=== PATIENT | male | born 1970 | race Caucasian/White ===

== ENCOUNTER → 2018-01-13 | Outpatient (CLI) | payer OTHER ==
--- NOTE | 2018-01-26 23:29 | ONC ---
[place] [address] RADIATION ONCOLOGY NOTE Name: DESI SMITHMAKENZIE SLADENETH Room: [facility]#: [id number] Admission: 01/13/18 Attend Phys: Scooby Sevilla MD Discharge: Date of : 74 Report #: [id number] THIS REPORT FOR: //name// CC: Dr. ISRAEL Webb DATE OF SERVICE: 01/13/2018 [facility] REFERRING PHYSICIANS: Dr. Pily Webb, Dr. Sarmiento, and Dr. Gerhard Liao. PRIMARY SITE AND HISTOPATHOLOGY: The patient has a T1b true vocal cord cancer. PROCEDURE: nasopharyngolaryngoscopy. FINDINGS: On nasopharyngolaryngoscopy, after application of 2% viscous lidocaine orally and then 2% viscous lidocaine to the right nostril with a cotton swab: there were no visible lesions in the nasopharynx and there were no visible lesions in the posterior oropharynx. The base of tongue had no visible lesions. The pharyngeal alvarado did not have any visible lesions. The patient does have a small ulceration from the mid aspect to the anterior aspect of the right true vocal cord consistent with his known right true vocal cord cancer. 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 The mobility was normal. The patient is being set up for radiation treatments for his true vocal cord cancer. Thank you for allowing me to participate in the care of this patient. <ELECTRONICALLY SIGNED> By: Scooby Sevilla MD 01/26/18 2329 1111 [id number] Sevilla MD /nt
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
== END | disposition home or self-care (01) ==
LOC: M.RTH 01:57
DX: C32.0 Malignant neoplasm of glottis (principal); K21.9 Gastro-esophageal reflux disease without esophagitis; Z98.890 Other specified postprocedural states; Z79.899 Other long term (current) drug therapy; Z87.891 Personal history of nicotine dependence

== ENCOUNTER → 2018-04-14 | Outpatient (CLI) | payer OTHER ==
--- NOTE | 2018-04-25 00:47 | ONC ---
[place] [address] RADIATION ONCOLOGY NOTE Name: LIAN PITTS Room: [facility].#: [id number] Admission: 04/14/18 Attend Phys: Scooby Sevilla MD Discharge: Date of : 74 Report #: [id number] THIS REPORT FOR: //name// CC: Dr. ISRAEL Junior MD DATE OF SERVICE: 04/14/2018 REFERRING PHYSICIANS: Include Dr. Pily Junior, Dr. Herrera Liao and Dr. Israel Sarmiento. [facility] phone is [phone]. PRIMARY SITE AND HISTOPATHOLOGY: The patient received definitive radiation therapy for a [id number] true vocal cord cancer. PROCEDURE: Nasopharyngolaryngoscopy. FINDINGS: On nasopharyngolaryngoscopy, after application of 2% viscous lidocaine orally and then 2% viscous lidocaine to the right nostril with a cotton swab, there were no visible lesions in the nasopharynx. There were no visible lesions in the posterior oropharynx. The base of tongue had no visible lesions. The true vocal cords were normally mobile bilaterally. The patient still had post-treatment changes around the true vocal cords with some mild glottic edema. There is no evidence of head and neck cancer at this time. Thank you for allowing me to participate in the care of this patient. <ELECTRONICALLY SIGNED> By: Scooby Sevilla MD 04/25/18 0047 1053 [id number] Sevlila MD /nt
--- NOTE | 2018-04-25 00:51 | ONC ---
[address] [address] RADIATION ONCOLOGY NOTE Name: LIAN SMITH Room: [facility]#: [id number] Admission: 04/14/18 Attend Phys: Scooby Sevilla MD Discharge: Date of : 74 Report #: [id number] THIS REPORT FOR: //name// CC: Dr. ISRAEL Liao MD DATE OF SERVICE: 04/14/2018 REFERRING PHYSICIANS: Include Pily Junior MD; Herrera Liao MD and Israel Sarmiento MD. [facility] phone is [phone]. PRIMARY SITE AND HISTOPATHOLOGY: The patient had a stage I [id number] true vocal cord cancer and the patient completed definitive radiation therapy on 03/11/2018. The right anterior true vocal cord was involved with a moderately differentiated invasive squamous cell carcinoma. It was negative for human papilloma virus, P16 and P18 type. INTERVAL NOTE: The patient feels like he is eating reasonably well. He feels like his voice quality is improving. He is eating a regular diet. MEDICATIONS: At this time include 40 mg of citalopram once a day, 40 mg of pantoprazole once a day and Atrovent spray as needed. SOCIAL HISTORY: The patient is self-employed. He has a son and daughter. Ethanol: he does not drink alcohol-containing drinks. Cigarettes: he smoked about 1 pack a day of cigarettes for about 5 years. He quit smoking about 25 years ago. He had chewed tobacco in the past for about the last 30 years. REVIEW OF SYSTEMS: RESPIRATORY: The patient was not short of breath. MUSCULOSKELETAL: Good range of motion in his upper extremities. PHYSICAL EXAMINATION: The patient is trying to voluntarily lose weight. He weighed 256.6 pounds on 04/14/2018. He weighed 264 pounds on 03/09/2018. On 04/14/2018, his blood pressure was 123/95, pulse 104, respirations 12. LYMPH NODES: He had no palpable cervical or supraclavicular lymphadenopathy. HEAD, EYES, EARS, NOSE AND THROAT: Mouth had no suspicious visible lesions or suspicious palpable lesions. On nasopharyngolaryngoscopy, after application of small amount of 2% viscous lidocaine orally and 2% viscous lidocaine to the right nostril with a cotton swab, there were no visible lesions in the nasopharynx. There were no visible lesions in the posterior oropharynx. Base of tongue had no visible lesions. The pharyngeal [place] [address] RADIATION ONCOLOGY NOTE Name: SMITHLIAN PITTS [facility] [id number] Admission: 04/14/18 Attend Phys: Scooby Sevilla MD Discharge: Date of : 74 Report #: [id number] The true vocal cords were normally mobile bilaterally without any suspicious visible lesions. They did have some post-treatment changes consistent with mild laryngeal edema. HEART: Had a regular rate and rhythm without murmur. LUNGS: were clear to auscultation. LABORATORY DATA: From 03/29/2018, hemoglobin 16.1, platelets were 210,000, white blood cells were 4.2. Sodium was 139, potassium 4.3, BUN was 15, creatinine was 1.22 and AST was 16, ALT was 17. RADIOLOGIC DATA: From 12/25/2017, the patient had a chest CT, which revealed a 0.4 cm right lung nodule, which was nonspecific, which was thought to be probably a small scar. Followup chest CT in 3-6 months was recommended and he also had a neck CT on 12/25/2017, which showed some minimal thickening of the right true vocal cord. No lymphadenopathies. ASSESSMENT AND PLAN: 1. History of true vocal cord cancer- There is no evidence of true vocal cord cancer at this time. A requisition was written for a basic metabolic panel and a TSH as well as a neck CT and chest CT in May 2018 or June 2018 and the patient was asked to schedule a followup appointment to see me afterwards. 2. Lung nodule- This is probably scar tissue and again, a basic metabolic panel and chest CT were ordered in May 2019 or June 2019. The patient was asked to schedule a followup appointment to see me afterwards. 3. Reflux symptoms- The patient takes Protonix for reflux symptoms that is managed by his referring physicians. 4. Depression- The patient takes citalopram and that is managed by his referring physicians. Thank you for allowing me to participate in the care of this patient. <ELECTRONICALLY SIGNED> By: Scooby Sevilla MD 04/25/18 0051 1113 [id number] Sevilla MD /nt
== END ==
LOC: M.RTH 03:28
DX: Z08 Encounter for follow-up examination after completed treatment for malignant neoplasm (principal); K21.9 Gastro-esophageal reflux disease without esophagitis; F32.9 Major depressive disorder, single episode, unspecified; R91.1 Solitary pulmonary nodule; Z85.21 Personal history of malignant neoplasm of larynx

== ENCOUNTER → 2018-08-04 | Outpatient (CLI) | payer OTHER ==
--- NOTE | ~2018-08-04 | ONC ---
[place] [address] RADIATION ONCOLOGY NOTE Name: SMITH,LIAN PITTS Room: [facility]#: [id number] Admission: 08/04/18 Attend Phys: Scooby Sevilla MD Discharge: Date of : 74 Report #: [id number] THIS REPORT FOR: //name// CC: ISRAEL Sevilla [facility] physician/PCP DATE OF SERVICE: 08/04/2018 REFERRING PHYSICIANS: Dr. Sarmiento, Dr. Pily Webb, Herrera Liao MD. [facility] phone is [phone]. PRIMARY SITE AND HISTOPATHOLOGY: The patient received definitive radiation therapy for [id number] true vocal cord cancer. PROCEDURE: Nasopharyngolaryngoscopy. FINDINGS: On nasopharyngolaryngoscopy, after application of 2% viscous lidocaine orally and then 2% viscous lidocaine to the right nostril with a cotton swab, there were no visible lesions in the nasopharynx and no visible lesions in the posterior oropharynx. The base of tongue had no visible lesions. The true vocal cords are normally mobile bilaterally with no visible lesions. There is no evidence of head and neck cancer at this time. Thank you for allowing me to participate in the care of this patient. By: 1140 MD rekha Killian
--- NOTE | ~2018-08-04 | ONC ---
[address] [address] RADIATION ONCOLOGY NOTE Name: LIAN PITTS Room: [facility]#: [id number] Admission: 08/04/18 Attend Phys: Scooby Sevilla MD Discharge: Date of : 74 Report #: [id number] THIS REPORT FOR: //name// CC: ISRAEL Sevilla [facility] physician/PCP DATE OF SERVICE: 08/04/2018 REFERRING PHYSICIANS: Include Dr. Pily Webb. Dr. Sarmiento and Dr. Herrera Liao. [facility] phone is [phone]. PRIMARY SITE AND HISTOPATHOLOGY: The patient has stage 1, T1b N0 M0 true vocal cord cancer and completed definitive radiation therapy on 03/11/2018. The right anterior true vocal cord was involved with a moderately differentiated invasive squamous cell carcinoma. It was negative for human papillomavirus P16 and P18 type: INTERVAL NOTE: The patient feels like he is swallowing normally. He is eating a regular diet. He has a very good voice quality. MEDICATIONS; Include 40 mg of citalopram per day. He takes 40 mg of pantoprazole per day. SOCIAL HISTORY: The patient is self-employed. He has a son and a daughter. Ethanol, he does not drink alcohol containing drinks. Cigarettes, he smoked about 1 pack a day of cigarettes for about 5 years. He quit smoking about 25 years ago. He chewed tobacco in the past for about the last 30 years. REVIEW OF SYSTEMS: RESPIRATORY: The patient was not short of breath. MUSCULOSKELETAL: He has good range of motion of his upper extremities. PHYSICAL EXAMINATION: VITAL SIGNS: The patient weighed 270 pounds on 08/04/2018. He was 256.6 pounds on 04/14/2018. Blood pressure was 124/90, pulse was 62, oxygen saturation 96% on room air, respirations 20. LYMPH NODES: He had no palpable cervical or supraclavicular lymphadenopathy. HEAD, EYES, EARS, NOSE AND THROAT: On exam, mouth had no suspicious visible lesions or suspicious palpable lesions. On nasopharyngolaryngoscopy, after application of a small amount of 2% viscous lidocaine orally and 2% viscous lidocaine to the right nostril with a cotton swab, there were no visible lesions in the nasopharynx. There were no visible lesions in the posterior oropharynx. Base of tongue had no visible lesions. The pharyngeal [place] [address] RADIATION ONCOLOGY NOTE Name: LIAN SMITH Room: [facility]#: [id number] Admission: 08/04/18 Attend Phys: Scooby Sevilla MD Discharge: Date of : 74 Report #: [id number] lesions. True vocal cords are normally mobile bilaterally without any visible lesions. HEART: Had a regular rate and rhythm without murmur. LUNGS: Clear to auscultation. LABORATORY DATA: From 03/29/2018, hemoglobin was 16.1, platelets are 210,000, white blood cells are 4.2, absolute neutrophil count was 3.1. On 06/29/2018, the sodium was 138, potassium 4.2, BUN 14, creatinine 0.99 and TSH was 2.65, which was within normal limits. RADIOLOGIC DATA: The patient had a neck and chest CT on 06/29/2018 and the neck had a mild diffuse thickening of the pharyngeal and hypopharyngeal structures which are likely post-therapeutic. No cervical adenopathy. He had an unchanged isthmus and the right thyroid hypodense and partially calcified nodules. On the chest CT, he had an unchanged right upper lobe 0.4 cm pulmonary nodule, which remains indeterminate and was thought to be probably a small scar or granuloma. Continued imaging on followup was suggested. The comparison was to the 12/25/[address] ASSESSMENT AND PLAN: 1. History of true vocal cord cancer. There was no evidence of true vocal cord cancer at this time. The patient will be referred back to his ear, nose and throat physician, Dr. Webb, for continued followup as well. The patient was given a requisition for TSH in 10/2018. He was asked to schedule a followup appointment to see me afterwards. 2. Thyroid nodules. The patient will be referred to his ear, nose and throat physician, Dr. Webb, to manage these thyroid nodules. 3. Reflux symptoms. The patient takes Protonix for reflux symptoms that is managed by his referring physician. 4. Depression. The patient takes citalopram for that issue and that is managed by his referring physician. Thank you for allowing me to participate in the care of this patient. By: 1146 [id number] Sevilla MD /tejal
== END ==
LOC: M.RTH 07-02 11:00
DX: Z08 Encounter for follow-up examination after completed treatment for malignant neoplasm (principal); E04.2 Nontoxic multinodular goiter; F32.9 Major depressive disorder, single episode, unspecified; K21.9 Gastro-esophageal reflux disease without esophagitis; Z85.21 Personal history of malignant neoplasm of larynx